=== PATIENT | male | born 1990 ===

== ENCOUNTER 2019-05-10 02:11 | Observation (INO) | payer OTHER, SELFPAY ==
[2019-05-10] MEDS ORDERED: Ondansetron PF 4 MG/2 ML Vial ONE ×2 (02:30→09:32)
[2019-05-10 02:50] LABS: #Lymphocytes 0.6 thou/uL (1.20-3.40); #Monocytes 1.4 thou/uL (0.11-0.59); #Neutrophils 15.9 thou/uL (1.40-6.50); %Eosinophils 0.1 % (0.0-10.0); %Lymphocytes 3.4 % (21.0-51.0); %Monocytes 7.7 % (0.0-10.0); %Neutrophils 88.8 % (42.0-75.0); Hemoglobin 15.4 g/dL (14.0-18.0); Mean Corpuscular HGB CONC 35.2 g/dL (32.0-36.0); Mean Corpuscular Hemoglobin 31.9 pg (27.0-31.0); Mean Corpuscular Volume 90.7 fL (78.0-98.0); Mean Platelet Volume 7.6 fL (7.4-10.4); Platelet Count 178 thou/uL (130-400); RBC Distribution Width 10.5 % (11.5-14.5); Red Blood Cell (RBC) Count 4.81 mill/uL (4.70-6.10); White Blood Cell (WBC) Count 17.9 thou/uL (4.8-10.8)
[2019-05-10] MEDS ORDERED: Morphine 4 MG/ML VIAL ONE (02:57)
[2019-05-10 03:11] LABS: ALT (SGPT) 40 U/L (8-55); AST (SGOT) 25 U/L (5-34); Albumin 4.8 g/dL (3.5-5.0); Alkaline Phosphatase 63 U/L (40-110); Anion Gap 16 mmol/L (10-20); BUN (Urea Nitrogen) 20 mg/dL (8.9-20.6); Bilirubin, Total 0.8 mg/dL (0.2-1.2); Calc. Creatinine Clearance 0 mL/min (70-130); Calcium 10.1 mg/dL (7.8-10.44); Carbon Dioxide 27 mmol/L (22-29); Chloride 100 mmol/L (98-107); Estimated GFR-MDRD Greater than 90; Globulin 3.6 g/dL (2.4-3.5); Glucose 128 mg/dL (70-105); Potassium 4.2 mmol/L (3.5-5.1); Protein, Total 8.4 g/dL (6.0-8.3); Sodium 139 mmol/L (136-145)
[2019-05-10] MEDS ORDERED: Piperacillin/Tazobactam 4.5 GM VIAL ONE (03:45)
[2019-05-10 04:37] LABS: Bilirubin Negative (Negative); Blood, Urine Negative (Negative); Clarity Clear (Clear); Glucose, Urine (Dipstick) Normal (Negative); Leukocyte Negative Leu/uL (Negative); Nitrite Negative (Negative); Protein, Urine (Dipstick) Negative (Neg-Trace); Urobilinogen Normal mg/dL (Less than 2)
[2019-05-10 04:39] VITALS: BMI 25.7
--- NOTE | 2019-05-10 07:34 | CT ---
PRELIMINARY REPORT/[facility]/EMERGENCY AFTER HOURS PROCEDURE: Receipt of this report by the clinical staff was confirmed with Jazmin Cates MD by Chikis Brumfield on May 10, 2019 03:38:00 CDT. Addendum electronically signed by Yaritza Brumfield on May 10, 2019 3:38:36 AM CDT EXAM: CT Abdomen and Pelvis with Intravenous Contrast CLINICAL HISTORY: 29M presenting to ED for evaluation of abdominal pain and vomiting. Pt reports mid abdominal pain sta rted THIS MORNING TECHNIQUE: Axial computed tomography images of the abdomen and pelvis with intravenous contrast. CONTRAST: With; ISOVUE 370,100mL COMPARISON: None provided. FINDINGS: LUNG BASES: No basilar airspace consolidation or pleural effusion. LIVER: Unremarkable. GALLBLADDER AND BILE DUCTS: Unremarkable. No calcified stone. No ductal dilation. PANCREAS: Unremarkable. SPLEEN: Unremarkable. ADRENAL GLANDS: Unremarkable. KIDNEYS, URETERS, AND BLADDER: Unremarkable. No hydronephrosis or nephrolithiasis. No ureteral or bladder calculi. STOMACH AND BOWEL: No obstruction. No wall thickening. No CT evidence of colitis or acute diverticulitis. APPENDIX: Acute appendicitis. The appendix measures 8.5 mm in diameter and tracts cephalad in the midline anter ior to the sacrum and aortic bifurcation. PERITONEUM: No free fluid. No free air. REPRODUCTIVE: Unremarkable as visualized. VASCULATURE: No aortic aneurysm. BONES: No fracture or suspicious osseous abnormality. ABDOMINAL WALL AND SOFT TISSUES: Unremarkable. IMPRESSION: Acute appendicitis. The appendix measures 8.5 mm in diameter and tracts cephalad in the midline anter ior to the sacrum and aortic bifurcation. ELECTRONICALLY SIGNED BY: Javi Santamaria MD May 10, 2019 3:34:31 AM CDT This report is intended for review by the ordering physician only, in accordance of law. If you recei ve this report in error, please call [facility] at [phone]. FINAL REPORT ABDOMEN CT WITH CONTRAST PELVIC CT WITH CONTRAT: HISTORY: Abdominal pain. COMPARISON: None. FINDINGS: ABDOMEN CT: Lung bases are clear. Appropriate enhancement of the solid organs. No obstructive uropathy. No evidence of small bowel obstruction. Ileocecal junction is unremarkable. Decompressed colon. Dilat ed tubular fluid-filled structure emanates from the cecal apex, compatible with an inflamed appendix. There are reactive adjacent mesenteric lymph nodes. No abscess or perforation. PELVIC CT: Unremarkable urinary bladder. No masses, lymphadenopathy, or free air. No lytic or blastic lesions in the osseous structures. IMPRESSION: This report is in agreement with the initial report by [facility]. 1. Appendicitis. No evidence of abscess or perforation. 2. Reactive enlarged lymph nodes in the right lower quadrant. POS: PPP
[2019-05-10] MEDS ORDERED: Iopamidol 370 76% 100 ML VIAL ONE (08:38)
[2019-05-10] MEDS ORDERED: Piperacillin/Tazobactam 3.375 GM VIAL ONE (09:26)
[2019-05-10] MEDS ORDERED: Sodium Chloride 0.9% 100 ML ONE (09:27)
[2019-05-10] MEDS ORDERED: Lidocaine 1% w/Epinephrine 1:100K 20 ML VIAL ONE (09:30)
[2019-05-10] MEDS ORDERED: Bupivacaine 0.25% HCL 30 ML VIAL ONE (09:30)
[2019-05-10] MEDS ORDERED: Rocuronium Bromide 10 MG/ML (10ML VIAL) ONE (09:32)
[2019-05-10] MEDS ORDERED: Succinylcholine Chloride 20 MG/ML 10 ml SYRINGE FS ONE (09:32)
[2019-05-10] MEDS ORDERED: Dexamethasone 20 MG/5 ML VIAL ONE (09:32)
[2019-05-10] MEDS ORDERED: PROPOFOL 200 MG/20 ML VIAL ONE (09:32)
[2019-05-10] MEDS ORDERED: Glycopyrrolate 0.2 MG/ML 5 ML SYRINGE ONE (09:32)
[2019-05-10] MEDS ORDERED: Lidocaine 1% PF 5 ML VIAL ONE (09:32)
[2019-05-10] MEDS ORDERED: Fentanyl 100 MCG/2 ML VIAL ONE ×2 (09:37→11:03)
[2019-05-10] MEDS ORDERED: Midazolam HCl 2 mg/2 ml Vial ONE (09:37)
--- NOTE | 2019-05-10 10:46 | OP ---
DATE OF PROCEDURE: 05/10/2019 PREOPERATIVE DIAGNOSIS: Acute appendicitis. POSTOPERATIVE DIAGNOSIS: Acute appendicitis. PROCEDURE PERFORMED: Laparoscopic appendectomy. ANESTHESIA: General. ESTIMATED BLOOD LOSS: Minimal. COMPLICATIONS: None. SPECIMEN: Appendix. FINDINGS: Appendicitis. DESCRIPTION OF PROCEDURE: The patient was taken to the operating room and laid supine on the operating table. After general anesthetic was obtained, a Clarke catheter was placed. The abdomen was prepped and draped in a sterile fashion. A curved incision was made below the umbilicus. Cautery was used to dissect down to and incise the intra-abdominal fascia. The abdominal cavity was entered bluntly using a Huong clamp. A holding stitch of Vicryl was placed on each side of the fascia. A Rosalba trocar was placed. High-flow peritoneum was obtained. A suprapubic 5-mm port and a left lower quadrant 5-mm port were placed under direct camera visualization. The cecum was rolled over to reveal acute appendicitis. A small window was made at the base of the appendix at the mesoappendix. A laparoscopic stapler was fired across the base of the appendix. A reload was fired across the mesoappendix. There was no bleeding on the staple lines. The appendix was placed in the EndoCatch bag and brought out through the Rosalba. The right lower quadrant and pelvis was irrigated using sterile solution. There was no evidence of perforation, no pus. All port sites were infiltrated using local anesthesia. All ports were removed under camera visualization. Pneumoperitoneum was let down. Vicryl suture was used to close the fascial defect below the umbilicus; #4-0 Monocryl and Dermabond were used to close the skin incision. The patient was en route to recovery in stable condition. All instrument counts, needle counts, and lap counts were correct. Job ID: [id number]
[2019-05-10] MEDS ORDERED: Promethazine HCl 25 MG/ML VIAL SLOW IVP PRN (10:47)
[2019-05-10] MEDS ORDERED: Ondansetron HCl/PF 4 MG/2 ML Vial IVP PRN (10:47)
[2019-05-10] MEDS ORDERED: Promethazine HCl 25 MG/ML VIAL IM PRN ×2 (10:47→11:50)
--- NOTE | 2019-05-10 10:47 | HP ---
CHIEF COMPLAINT: Right lower quadrant pain. HISTORY OF PRESENT ILLNESS: This is a 29-year-old male with a history of pain in his right lower abdomen since yesterday, described as 8/10 sharp, associated with nausea, no vomiting, associated with anorexia. No diarrhea. No history of chronic abdominal pain or inflammatory bowel disease. CT scan reveals acute appendicitis. PAST MEDICAL HISTORY: ADHD. PAST SURGICAL HISTORY: Negative. MEDICATIONS: Adderall. SOCIAL HISTORY: No smoking, alcohol, or other drugs. He is a student. REVIEW OF SYSTEMS: Ten-system review of systems otherwise, negative, unless described above. PHYSICAL EXAMINATION: HEENT: Sclerae anicteric. Oropharynx clear. NECK: No lymphadenopathy. CHEST: Clear. HEART: Regular rate and rhythm. ABDOMEN: Soft. Tender right lower quadrant, localized, guarding. No rebound. No abdominal or inguinal hernias. EXTREMITIES: No ischemia or edema to extremities. IMAGING STUDIES: CT scan shows acute appendicitis. ASSESSMENT: Acute appendicitis. PLAN: Laparoscopic appendectomy. Risks, benefits, and alternatives discussed, he gave consent. We will do this today. Job ID: [id number]
[2019-05-10 11:46] VITALS: BP 120/78; TEMP 98.9
[2019-05-10] MEDS ORDERED: HYDROcodone/Acetaminophen 10/325 mg Tablet PO PRN (11:50)
[2019-05-10] MEDS ORDERED: D5 1/2 NS w/20 mEq KCL 1,000 ML IV SCH (11:50)
[2019-05-10] MEDS ORDERED: hydrALAZINE 20 MG/ML VIAL SLOW IVP PRN (11:50)
[2019-05-10] MEDS ORDERED: Morphine 2 MG/ML SYRINGE SLOW IVP PRN (11:50)
[2019-05-10] MEDS ORDERED: Dextrose 50% Abboject 50 ML SYRINGE SLOW IVP PRN (11:50)
[2019-05-10] MEDS ORDERED: Morphine 4 MG/ML VIAL SLOW IVP PRN (11:50)
[2019-05-10] MEDS ORDERED: Dextrose 5% in Water 1,000 ML IV PRN (11:50)
[2019-05-10] MEDS ORDERED: Ondansetron PF 4 MG/2 ML Vial IVP PRN (11:50)
[2019-05-10] MEDS ORDERED: Piperacillin/Tazobactam 3.375 GM in Sodium Chloride 0.9% 100 ML IVPB SCH (12:15)
[2019-05-10] MEDS ORDERED: Famotidine/PF 20 mg/2ml Vial SLOW IVP SCH (21:00)
[2019-05-10] MEDS ORDERED: Famotidine 20 MG TAB PO SCH (21:00)
== END 2019-05-10 15:35 | disposition home or self-care (01) ==
LOC: ERS 02:11 → SURG B 03:50
PROVIDERS: ADMIT Specialist; ATTEND Specialist
PROC: 0DTJ4ZZ Resection of Appendix, Percutaneous Endoscopic Approach (ICD-10-PCS; principal; 2019-05-10)
DX: K35.80 Unspecified acute appendicitis (principal); F90.9 Attention-deficit hyperactivity disorder, unspecified type; Z79.899 Other long term (current) drug therapy
CPT/HCPCS: 74177; 80053; 81003; 85025; 88304; 96361; 96365; 96372; 96375; G0378; J0500; J1100; J2001; J2250; J2270; J2405; J2543; J2704; J3010; J3490; Q9967; S0020